=== PATIENT | female | born 1940 | race Two or more races ===

== ENCOUNTER 2018-10-24 05:00 | Day surgery (SDC) | payer OTHER ==
[~2018-10-24 05:00] MED LIST: COREG CR20 MG PO; COZAAR100 MG PO; ECOTRIN325 M1 PO; HYDROCHLOROTHIA25 MG PO; JANUMET XR 50-1 EAC1 PO; LANTUS SOL100 UNIT/1 SUBCUTANEO; LEVAQUIN500 MG PO; NEURONTIN300 MG PO; NORVASC5 MG PO; PEPCID40 MG PO; SYNTHROID75 MCG PO; ZANAFLEX4 MG PO
[2018-10-24] MEDS ORDERED: ULTRACET PO (10:57)
[2018-10-24] MEDS ORDERED: MACROBID 100 M100 MG PO (10:57)
== END 2018-10-24 14:05 | disposition home or self-care (01) ==
LOC: CIR.AMB 05:00
DX: N81.11 Cystocele, midline (principal); N81.6 Rectocele; N81.5 Vaginal enterocele

== ENCOUNTER 2021-09-08 05:35 | Day surgery (SDC) | payer OTHER ==
[~2021-09-08 05:35] MED LIST changes: +MACROBID 100 M100 MG PO; +TOUJEO MAX300 UNIT/1; +ULTRACET PO
[2021-09-08] MEDS ORDERED: MACROBID 100 M100 MG PO (11:23)
[2021-09-08] MEDS ORDERED: ULTRACET PO (11:24)
== END 2021-09-08 15:00 | disposition home or self-care (01) ==
LOC: CIR.AMB 05:35
PROVIDERS: ATTEND Obstetrics & Gynecology Gynecology
DX: N81.11 Cystocele, midline (principal); N81.6 Rectocele; Z88.0 Allergy status to penicillin; I10 Essential (primary) hypertension; E03.9 Hypothyroidism, unspecified; E11.9 Type 2 diabetes mellitus without complications; Z79.84 Long term (current) use of oral hypoglycemic drugs; Z79.82 Long term (current) use of aspirin; N81.5 Vaginal enterocele